=== PATIENT | female | born 1985 | race African-American/Black ===

== ENCOUNTER → 2018-10-19 | Outpatient (CLI) | payer OTHER ==
--- NOTE | 2018-10-19 13:19 | KCIC ---
Examination: Ultrasound pelvis HISTORY: History of STD exposure COMPARISON: None available FINDINGS: The uterus measures 12.60 4.3 x 7.2 cm. Endometrium measures 2.8 mm in thickness The right ovary measures 5.3 x 2.2 x 3.3 cm. There is a complex septated appearing cystic structure measuring 2.7 x 1.1 0.8 cm identified in the right ovary. Blood flow identified in the right and left ovaries. The left ovary measures 4.8 x 2.1 x 2.9 cm. The uterus is retroflexed. Free fluid identified in the cul-de-sac. IMPRESSION: 1. A 2.7 cm septated cyst or follicle identified in the right ovary. Follow-up to resolution. Electronically signed by: Jaime Argueta MD (10/19/2018 1:16 PM) [id number]
== END | disposition home or self-care (01) ==
LOC: KCIC US 11:05
PROVIDERS: ATTEND Obstetrics & Gynecology
DX: Z20.2 Contact with and (suspected) exposure to infections with a predominantly sexual mode of transmission (principal)
CPT/HCPCS: 76830; 76856

== ENCOUNTER → 2019-10-18 | Outpatient (CLI) | payer MEDICAID, OTHER ==
--- NOTE | 2019-10-18 15:30 | RAD ---
Pelvic ultrasound to include transabdominal and transvaginal imaging 10/18/2019 CLINICAL HISTORY: History of right ovarian cyst seen on previous ultrasound. TECHNIQUE: Using the distended urinary bladder as a sonographic window, a real-time ultrasound examination of the pelvis was performed. Additionally in an attempt to better evaluate the uterus and adnexa, a transvaginal ultrasound study was performed. Multiple images were obtained. FINDINGS: Comparison study is dated 10/19/2018. The uterus is within normal limits in size. It measures 10.5 x 6.6 x 5.2 cm in longitudinal, transverse, and AP dimensions. The endometrial echo complex measures 1.2 cm in thickness which is within normal limits. No focal abnormality of the uterus is seen. Both ovaries are within normal limits in size and echogenicity. The right ovary measures 5.5 x 3.4 x 1.9 cm in size. The left ovary measures 4.4 x 3.5 x 2.0 cm in size. Normal color-flow and pulse Doppler imaging to both ovaries is noted. A 1.6 cm follicle is seen within the left ovary. A trace amount of free fluid is seen within the pelvis. The 2.7 cm cyst seen within the right ovary on the previous examination has resolved. IMPRESSION: The uterus and ovaries are within normal limits. A trace amount of free fluid is seen within the pelvis. The 2.7 cm right ovarian cyst seen on the previous examination has resolved. Electronically signed by: Eze Patel MD (10/18/2019 3:27 PM) [id number]
== END | disposition home or self-care (01) ==
LOC: US 09:44
PROVIDERS: ATTEND Obstetrics & Gynecology
DX: Z01.419 Encounter for gynecological examination (general) (routine) without abnormal findings (principal); Z11.3 Encounter for screening for infections with a predominantly sexual mode of transmission; N83.201 Unspecified ovarian cyst, right side
CPT/HCPCS: 76830; 76856